=== PATIENT | male | born 1985 | race Caucasian/White ===

== ENCOUNTER 2017-05-14 21:22 | Emergency (ER) | payer OTHER ==
[2017-05-14 21:42] VITALS: BP 131/73
--- NOTE | 2017-05-14 22:13 | ED Physician Documentation ---
PD HPI URI - Stated complaint Stated Complaint: LT EAR/NECK PX - Chief complaint Chief Complaint: Heent - History obtained from History obtained from: Patient - History of Present Illness Timing - onset: Yesterday Timing duration: Days (1-2) Timing details: Abrupt onset, Still present Associated symptoms: Sore throat, Swollen nodes. No: Fever, Chills, Nasal congestion, Dry cough Contributing factors: No: Sick contact, Travel, Immunocompromised Improves by: No: Medication (Ibuprofen) Similar symptoms before: Has not had sx before Recently seen: Not recently seen Review of Systems Constitutional: reports: Fever, Chills, Myalgias Ears: reports: Ear pain (left) Nose: denies: Rhinorrhea / runny nose, Congestion Throat: reports: Sore throat (mainly on left) Cardiac: denies: Chest pain / pressure Respiratory: denies: Cough GI: reports: Nausea. denies: Vomiting, Diarrhea Skin: denies: Rash, Lesions Musculoskeletal: reports: Neck pain. denies: Back pain PD PAST MEDICAL HISTORY - Past Medical History Cardiovascular: None Respiratory: None Neuro: None Endocrine/Autoimmune: None - Present Medications Home Medications: Ambulatory Orders Medication Instructions Recorded Confirmed Cephalexin [Keflex] 500 mg PO QID #24 capsule 05/14/17 Dexamethasone [Decadron] 4 mg PO DAILY #5 tablet 05/14/17 HYDROcod/ACETAM 5/325 [[place] 5/325] 1 tab PO Q6H PRN #15 tablet 05/14/17 - Allergies Allergies/Adverse Reactions: Allergies Allergy/AdvReac Type Severity Reaction Status Date / Time No Known Drug Allergies Allergy Verified 05/14/17 21:34 PD ED PE NORMAL - Vitals Vital signs reviewed: Yes - General General: Alert and oriented X 3, Well developed/nourished - HEENT HEENT: Ears normal, Moist mucous membranes, Dentition benign. No: Pharynx benign (redness with swelling of tonsils and some exudate. mild peritonsillar swelling on left but no tonsillar deviation. ) - Neck Neck: Supple, no meningeal sign, Other (anterior adenopathy both sides. ) Results - Vitals Vitals: Oxygen O2 Source Room air - Labs Labs: Microbiology 05/14/17 22:44 Group A Strep Throat Culture - Final Throat Laboratory Tests 05/14/17 22:44 Group A Strep Rapid Negative PD MEDICAL DECISION MAKING - ED course Complexity details: reviewed results, considered differential (seems clinically likely to be strep. Can treat empirically pending culture. ), d/w patient Departure - Departure Disposition: 01 Home, Self Care Clinical Impression: Acute tonsillitis Qualifiers: Pharyngitis/tonsillitis etiology: unspecified etiology Qualified Code(s): J03.90 - Acute tonsillitis, unspecified Condition: Stable Record reviewed to determine appropriate education?: Yes Instructions: ED Strep Pharyngitis Poss Follow-Up: [facility]AL[facility] [Provider Group] Prescriptions: Dexamethasone [Decadron] 4 mg PO DAILY #5 tablet Cephalexin [Keflex] 500 mg PO QID #24 capsule HYDROcod/ACETAM 5/325 [[place] 5/325] 1 tab PO Q6H PRN #15 tablet PRN Reason: Pain Comments: Drink lots of fluids. Tylenol or ibuprofen if needed for pain. Decadron daily for 5 more days for the inflammation. Cephalexin 4 times a day for infection. Add hydrocodone or Tylenol if needed for pain. Rest off work for 1-2 days as needed due to illness and discomfort. You may need to present to sick call to have that validated. Follow-up with your primary care if not improved over the next couple of days. Forms: Activity restrictions Discharge Date/Time: 05/14/17 22:55
[2017-05-14] MEDS ORDERED: HYDROcod/ACETAM 5/325 MG TABLET PO STA (22:31)
[2017-05-14] MEDS ORDERED: CEPHALEXIN 250 MG CAPSULE PO STA (22:31)
[2017-05-14] MEDS ORDERED: HYDROcod/ACET 5/325 Prepack 6 PO ONE ×2 (22:31→22:33)
[2017-05-14] MEDS ORDERED: DEXAMETHASONE 10 MG/ML VIAL PO STA (22:31)
[2017-05-14] MEDS ORDERED: diphenhydrAMINE ELIXIR 25 MG/10 ML UDC PO STA (22:31)
[2017-05-14] MEDS ORDERED: diphenhydrAMINE 25 MG CAPSULE PO ONE (22:33)
[2017-05-14] MEDS ORDERED: HYDROcod/ACETAM 5/325 MG TABLET ONE (22:33)
[2017-05-14] MEDS ORDERED: CEPHALEXIN 250 MG CAPSULE PO ONE (22:33)
[2017-05-14] MEDS ORDERED: DEXAMETHASONE 10 MG/ML VIAL ONE (22:33)
[2017-05-14] MEDS ORDERED: diphenhydrAMINE ELIXIR 25 MG/10 ML UDC PO ONE (22:40)
[2017-05-14 23:16] LABS: RAPID STREP SCREEN REAGENT QC YELLOW (YELLOW)
== END 2017-05-14 22:55 | disposition home or self-care (01) ==
LOC: ED 21:22
DX: J03.90 Acute tonsillitis, unspecified (principal)
CPT/HCPCS: 87070; 87430; 99283; A9270